=== PATIENT | male | born 1945 | race Caucasian/White ===

== ENCOUNTER → 2017-07-20 | Day surgery (SDC) | payer MEDICARE ==
[~2017-07-20] VITALS: Ht 175.3 cm; Wt 97.2 kg
[~2017-07-20] MED LIST: *RESP: ALBUTEROL 2.5 MG/3 ML NEB (PRN) PERIprocedural Use ONLY NEB ONE; ACETAMINOPHEN 1000 MG/100 ML VIAL IV SCH; ALBU6.7H INH; AMBI10TA PO; ATOR40TA PO; ATOR40TA16 PO; AZIT250T43 PO; BUPIVACAINE/EPINEPHRINE 0.5% 50 ML VIAL ONE; CEPH-460 PO; CHLORHEXIDINE GLUCONATE 2 % 1 PACK (2 CLOTHS) TOPICAL PRN; CITA10TA4 PO; COLA100C PO; DEXAMETHASONE SOD PHOS 4 MG/ML VIAL ONE; DICY10 PO; DILT300C3 PO; DILTCD300; DO NOT ADM ANY ANTICOAGULANT DRUGS PRN; FAMOTIDINE 20 MG/2 ML VIAL ONE; FENT25T T-DERMAL; FINA5TAB77; HYDR-3111 PO; INSULIN HUMAN REGULAR 1,000 UNITS/10 ML VIAL SQ PRN; KETOROLAC TROMETHAMINE 30 MG/ML (IVP) VIAL IV PUSH ONE; KETOROLAC TROMETHAMINE 30 MG/ML (IVP) VIAL ONE; LACTATED RINGER'S 1000 ML IV PRN; LANS30CA PO; LISI-366 PO; LORC10TA24; METOPROLOL TARTRATE 25 MG TAB PO PRN; MIDAZOLAM HCL 2 MG/2 ML VIAL ONE; MORPHINE SULFATE 4 MG/ML INJ IV PRN; NEOSTIGMINE 3 MG/3 ML SYR IV ONE; NORC5TAB PO; ONDANSETRON HCL 4 MG/2 ML VIAL IV PRN; ONDANSETRON HCL 4 MG/2 ML VIAL IV PUSH ONE; PHENYLEPH/NS 1000 MCG/10 ML SYR IV ONE; POVIDONE IODINE 5% (ANTISEPSIS KIT) 4 APPLICATIONS EACH NARE PRN; PRED50 PO; PROPOFOL 200 MG/20 ML AMP IV ONE; PROS5TAB PO; REGL10TA5 PO; RESP: ALBUTEROL 2.5 MG/IPRATROPIUM 0.5 MG NEB (SCH) ONE; SODIUM CHLORID 0.9% 500 ML IV PRN; SODIUM CHLORIDE 0.9% FLUSH 10 ML FLUSH IV FLUSH PRN; SODIUM CHLORIDE 0.9% FLUSH 10 ML FLUSH IV FLUSH SCH; SPIR25TA PO; SPIR25TA3 PO; TAMS0.4C4; TAMS0.4C4 PO; VENTAER INH; ZOLP10TA3 PO; [UNRECOGNIZED DRUG - CODE]; ceFAZolin 2 GM PREMIX 50 ML IV SCH; ePHEDrine/NS 25 MG/5 ML SYR IV ONE; oxyCODONE/ACETAMINOPHEN 5 MG/325 MG TAB PO PRN
[2017-07-20 10:11] LABS: AUTOMATED NEUTROPHIL # 9.6 TH/MM3 (1.8-7.7); BASOPHIL # 0.1 TH/MM3 (0-0.2); BASOPHIL % 0.5 % (0.0-2.0); EOSINOPHIL # 0.1 TH/MM3 (0-0.4); EOSINOPHIL % 0.9 % (0.0-4.0); HEMATOCRIT 45.2 % (39.0-51.0); HEMO FLAGS DIFF FINAL; LYMPH % 7.6 % (9.0-44.0); LYMPHOCYTE # 0.9 TH/MM3 (1.0-4.8); MEAN CORPUSCULAR HEMOGLOBIN 30.3 PG (27.0-34.0); MEAN CORPUSCULAR HGB CONC 32.6 % (32.0-36.0); PLATELET COUNT 309 TH/MM3 (150-450); RED BLOOD COUNT 4.86 MIL/MM3 (4.50-5.90); RED CELL DISTRIBUTION WIDTH 13.2 % (11.6-17.2); WHITE BLOOD COUNT 11.8 TH/MM3 (4.0-11.0)
[2017-07-20 10:33] LABS: TOTAL BILIRUBIN ADULT 0.7 MG/DL (0.2-1.0)
[2017-07-20 10:37] LABS: BICARBONATE 24.8 MEQ/L (21.0-32.0); INDIRECT BILIRUBIN 0.5 MG/DL (0.0-0.8); POTASSIUM 3.9 MEQ/L (3.5-5.1)
--- NOTE | 2017-07-20 10:39 | RADRPT ---
EXAM DATE/TIME: 07/20/2017 09:57 [facility] COMPARISON: No previous studies available for comparison. INDICATIONS : Pre-op surgery. MEDICAL HISTORY : Hypertension. SURGICAL HISTORY : Appendectomy. Right knee surgery. ENCOUNTER: Initial ACUITY: 2 months PAIN SCORE: 4/10 LOCATION: Right upper quadrant MEASUREMENTS: LIVER: 15.9 cm length COMMON DUCT: 5 mm RIGHT KIDNEY: 10.9 x 5.0 x 5.9 cm FINDINGS: LIVER: Mildly echogenic COMMON DUCT: No intraluminal mass or stone visualized. GALLBLADDER: Multiple gallstones with mild thickening of the gallbladder wall. PANCREAS: The visualized portions are within normal limits. RIGHT KIDNEY: No evidence of hydronephrosis, stone, or mass. CONCLUSION: Multiple gallstones with gallbladder wall thickening. Misael Cadena MD FACR on July 20, 2017 at 10:37 Board Certified Radiologist. This report was verified electronically.
--- NOTE | 2017-07-20 17:31 | PD.OP ---
cc: Pradeep Seo MD Operative Report Date of Surgery: Jul 20, 2017 Preoperative Diagnosis: Chronic cholecystitis and cholelithiasis Postoperative Diagnosis: Chronic cholecystitis and cholelithiasis Procedure: Laparoscopic cholecystectomy Anesthesia: General endotracheal Surgeon: Pradeep Seo Angular Developer(s): None Operation and Findings: Operative findings: The patient was found to have a relatively diseased- appearing gallbladder with minimal adhesions along Leal's pouch and to the duodenum. It was slightly thick-walled and and had many stones in it. The cystic duct was seen to be of normal caliber as did the common bile duct. The liver had significant fatty changes to it. Also of note was that there were numerous areas of peritoneal studding involving the upper abdomen near the diaphragm and on the falciform ligament as well as the right and lower anterior abdominal peritoneal surface. There was no evidence of gross tumor, nor was there any evidence of omental caking. Operative procedure: The patient is brought to the operating room and after satisfactory general endotracheal anesthesia obtained, the abdomen was prepped and draped in usual sterile fashion. The patient had a previous umbilical hernia repair and was decided to place initial trocar superiorly. Presently 8- 10 cm below the xiphoid, a 5 mm trocar was inserted through a small incision which and been anesthetized with 0.5 percent Marcaine with epinephrine. The abdomen was distended to 15 mmHg using carbon dioxide after which the camera was reinserted and visceral injury inspected for, with none being identified. Under direct visualization a 5 port and a 12 port were placed in the upper abdomen and another 5 port in the super umbilical region to avoid the mesh. The above-noted findings were seen and the decision was made to continue with the cholecystectomy. The gallbladder was grasped and retracted superiorly over the right lobe of the liver after which Leal's pouch was cleared of adhesions and from the duodenum. It was then retracted inferiorly and laterally placing tension on the hepatoduodenal ligament. The cystic artery cystic duct were both dissected free bluntly to obtain the critical view. Once the critical view been obtained the cystic duct and artery were both divided near their junction with the gallbladder using the harmonic scalpel. The gallbladder was then dissected free from the liver bed using the harmonic scalpel. It was grasped and placed within an Endo Catch bag and brought through the upper midline incision without problem. It was sent for permanent pathology. 2 separate areas of the peritoneal studding were biopsied. There is no definitive diagnosis on frozen section. The remaining specimens were sent for permanent pathology. The liver bed was inspected and irrigated copiously with saline. It was seen to be hemostatic with no areas of bleeding. The cystic duct cystic artery stumps were both inspected and found to be intact with no leakage of bile or blood. The carbon dioxide was vented as completely as possible the atmosphere. The ports were removed and the 12 mm fascial defect closed with interrupted 0 Vicryl sutures and skin closed with interrupted 4-0 PDS subcuticular stitches. Steri-Strips were applied and the patient was then taken from the operating room , in satisfactory condition, having tolerated procedure without problem. Estimated blood loss was less than 5 mL's. The instrument, sponge, needle counts were reported as being correct 2 at the end of the procedure. Pradeep Seo MD Jul 20, 2017 17:31
[2017-07-20 18:31] VITALS: BP 122/59; PULSE 101; RESP 20; TEMP 98.4; O2SAT 93
== END | disposition home or self-care (01) ==
LOC: HSDC 09:08
PROVIDERS: ATTEND Surgery
DX: K80.10 Calculus of gallbladder with chronic cholecystitis without obstruction (principal); C48.1 Malignant neoplasm of specified parts of peritoneum; C49.4 Malignant neoplasm of connective and soft tissue of abdomen; I10 Essential (primary) hypertension; E78.5 Hyperlipidemia, unspecified; E83.52 Hypercalcemia; E11.9 Type 2 diabetes mellitus without complications; K21.9 Gastro-esophageal reflux disease without esophagitis; F90.0 Attention-deficit hyperactivity disorder, predominantly inattentive type; F41.9 Anxiety disorder, unspecified; I70.0 Atherosclerosis of aorta; G51.0 Bell's palsy; N40.0 Benign prostatic hyperplasia without lower urinary tract symptoms; E78.1 Pure hyperglyceridemia; R05 Cough; G47.33 Obstructive sleep apnea (adult) (pediatric); Z87.891 Personal history of nicotine dependence; Z79.899 Other long term (current) drug therapy
CPT/HCPCS: 00790; 47562; 49321; 76705; 80048; 80076; 85025; 88305; 88313; 88331; 88341; 88342; 94640; 94664; J0131; J0690; J1100; J2250; J2370; J2405; J2710; J3010; J7613; J1885

== ENCOUNTER 2017-07-21 06:14 | Emergency (ER) | payer MEDICARE ==
[~2017-07-21 06:14] MED LIST changes: -*RESP: ALBUTEROL 2.5 MG/3 ML NEB (PRN) PERIprocedural Use ONLY NEB ONE; -ACETAMINOPHEN 1000 MG/100 ML VIAL IV SCH; -ALBU6.7H INH; -ATOR40TA PO; -AZIT250T43 PO; -BUPIVACAINE/EPINEPHRINE 0.5% 50 ML VIAL ONE; -CHLORHEXIDINE GLUCONATE 2 % 1 PACK (2 CLOTHS) TOPICAL PRN; -COLA100C PO; -DEXAMETHASONE SOD PHOS 4 MG/ML VIAL ONE; -DILTCD300; -DO NOT ADM ANY ANTICOAGULANT DRUGS PRN; -FAMOTIDINE 20 MG/2 ML VIAL ONE; -FENT25T T-DERMAL; -FINA5TAB77; -HYDR-3111 PO; -INSULIN HUMAN REGULAR 1,000 UNITS/10 ML VIAL SQ PRN; -KETOROLAC TROMETHAMINE 30 MG/ML (IVP) VIAL IV PUSH ONE; -KETOROLAC TROMETHAMINE 30 MG/ML (IVP) VIAL ONE; -LACTATED RINGER'S 1000 ML IV PRN; -LISI-366 PO; -LORC10TA24; -METOPROLOL TARTRATE 25 MG TAB PO PRN; -MIDAZOLAM HCL 2 MG/2 ML VIAL ONE; -MORPHINE SULFATE 4 MG/ML INJ IV PRN; -NEOSTIGMINE 3 MG/3 ML SYR IV ONE; -NORC5TAB PO; -ONDANSETRON HCL 4 MG/2 ML VIAL IV PRN; -ONDANSETRON HCL 4 MG/2 ML VIAL IV PUSH ONE; -PHENYLEPH/NS 1000 MCG/10 ML SYR IV ONE; -POVIDONE IODINE 5% (ANTISEPSIS KIT) 4 APPLICATIONS EACH NARE PRN; -PRED50 PO; -PROPOFOL 200 MG/20 ML AMP IV ONE; -REGL10TA5 PO; -RESP: ALBUTEROL 2.5 MG/IPRATROPIUM 0.5 MG NEB (SCH) ONE; -SODIUM CHLORID 0.9% 500 ML IV PRN; -SODIUM CHLORIDE 0.9% FLUSH 10 ML FLUSH IV FLUSH PRN; -SODIUM CHLORIDE 0.9% FLUSH 10 ML FLUSH IV FLUSH SCH; -SPIR25TA PO; -TAMS0.4C4; -VENTAER INH; -ZOLP10TA3 PO; -[UNRECOGNIZED DRUG - CODE]; -ceFAZolin 2 GM PREMIX 50 ML IV SCH; -ePHEDrine/NS 25 MG/5 ML SYR IV ONE; -oxyCODONE/ACETAMINOPHEN 5 MG/325 MG TAB PO PRN
[2017-07-21 06:17] VITALS: BP 126/61; PULSE 105; RESP 18; TEMP 97.7; O2SAT 93
[2017-07-21 07:19] VITALS: BP 111/66; PULSE 90; RESP 18; O2SAT 93
[2017-07-21] MEDS ORDERED: SODIUM CHLOR 0.9% 1000 ML INJ 1,000 ML IV ONE (07:30)
--- NOTE | 2017-07-21 08:17 | PD ---
HPI Chief Complaint: Complaint Time Seen by Provider: 07:04 Travel History International Travel<30 days: No Contact w/Intl Traveler<30days: No Traveled to known affect area: No History of Present Illness HPI Is a 72-year-old man who presents to the emergency department complaining of difficulty urinating. He had his gallbladder taken but black yesterday. He's had trouble with difficulty urinating in the past. He states he feels like he has to urinate extensive nothing really comes out. He is a little bit of mild lower abdominal discomfort but no significant distention. History Past Medical History Narrative Medical Hypertension BPH Hyperlipidemia Social History Alcohol Use: Yes (OCCASIONALLY) Tobacco Use: No Allergies-Medications (Allergen,Severity, Reaction): Coded Allergies: No Known Allergies (Unverified , 07/21/17) Reported Meds & Prescriptions Reported Meds & Active Scripts Active Reported Bentyl (Dicyclomine HCl) 10 Mg Cap 20 Mg PO TID Keflex (Cephalexin) 500 Mg Cap 500 Mg PO Q8H Lansoprazole 30 Mg Capdr 30 Mg PO DAILY Ambien (Zolpidem Tartrate) 10 Mg Tab 10 Mg PO HS PRN Tamsulosin (Tamsulosin HCl) 0.4 Mg Cap 0.4 Mg PO HS Spironolactone-Hydrochlorothiazide 25-25 Mg Tab 1 Tab PO DAILY Proscar (Finasteride) 5 Mg Tab 5 Mg PO DAILY Do not crush. Diltiazem CD 24 HR 300 Mg Caper 300 Mg PO DAILY Citalopram (Citalopram Hydrobromide) 10 Mg Tab 10 Mg PO DAILY Atorvastatin (Atorvastatin Calcium) 40 Mg Tab 40 Mg PO HS Review of Systems Except as stated in HPI: all other systems reviewed are Neg Physical Exam Narrative GENERAL: Well-appearing 72-year-old man, no acute distress. SKIN: Focused skin assessment warm/dry. HEAD: Atraumatic. Normocephalic. EYES: Pupils equal and round. No scleral icterus. No injection or drainage. ENT: No nasal bleeding or discharge. Mucous membranes pink and moist. NECK: Trachea midline. No JVD. CARDIOVASCULAR: Regular rate and rhythm. No murmur appreciated. RESPIRATORY: No accessory muscle use. Clear to auscultation. Breath sounds equal bilaterally. GASTROINTESTINAL: Wall proximal incisions. No erythema redness. No significant abdominal tenderness. Minimal suprapubic tenderness. Data Data Last Documented VS Vital Signs Date Time Temp Pulse Resp B/P (MAP) Pulse Ox O2 Delivery O2 Flow Rate FiO2 07/21/17 07:19 90 18 111/66 (81) 93 Room Air 07/21/17 06:17 97.7 Orders Orders Iv Access Insert/Monitor (07/21/17 07:18) Sodium Chlor 0.9% 1000 Ml Inj (Ns 1000 M (07/21/17 07:30) MDM Medical Decision Making Medical Screen Exam Complete: Yes Emergency Medical Condition: Yes Differential Diagnosis Acute retention, UTI, infection, other Narrative Course Medical decision making This 72-year-old male with a history of BPH, urinary retention the past, presents with difficulty urinating. Bladder scan performed by the nurse shows only about 330 mls of urine in the bladder. We'll place an IV and give IV fluid bolus. He will likely get better or worse, we'll place De La Cruz catheter if needed. Hopefully the symptoms will resolve likely from anesthesia. In the emergency department, patient was able to void spontaneously. He'll be I expect the symptoms to improve as he gets further removed from the surgery. Recommend supportive treatment and outpatient follow-up. Diagnosis Primary Impression: Urinary retention Additional Instructions: Follow-up with Dr. Seo as scheduled. Return to the emergency department for any new or worsening symptoms. Med/Other Pt SpecificInfo: No Change to Meds Disposition: 01 DISCHARGE HOME Condition: Stable Blaze Singletary MD Jul 21, 2017 08:16
[2017-07-21 09:05] VITALS: BP 112/62
[2017-08-21] MEDS ORDERED: COLA100C PO (11:52)
[2017-08-21] MEDS ORDERED: HYDR-3111 PO (11:52)
[2017-08-21] MEDS ORDERED: NORC5TAB PO (11:52)
[2017-08-21] MEDS ORDERED: VENTAER INH (11:52)
[2017-08-21] MEDS ORDERED: REGL10TA5 PO (11:52)
[2017-08-21] MEDS ORDERED: FENT25T T-DERMAL (11:52)
== END 2017-07-21 09:04 | disposition home or self-care (01) ==
LOC: NEPC 06:14
DX: N40.1 Benign prostatic hyperplasia with lower urinary tract symptoms (principal); R33.8 Other retention of urine
CPT/HCPCS: 96360; 99284; J7030

== ENCOUNTER → 2017-08-21 | Day surgery (SDC) | payer MEDICARE ==
[~2017-08-21] VITALS: Ht 175.3 cm; Wt 95.2 kg
[~2017-08-21] MED LIST changes: +ACETAMINOPHEN 1000 MG/100 ML 100 ML IV SCH; +BUPIVACAINE HCL PF 0.25% 30 ML VIAL ONE; +BUPIVACAINE/EPINEPHRINE 0.5% 50 ML VIAL ONE; +CHLORHEXIDINE GLUCONATE 2 % 1 PACK (2 CLOTHS) TOPICAL PRN; +COLA100C PO; +DEXMEDETOMIDINE HCL 200 MCG/2 ML VIAL ONE; +FAMOTIDINE 20 MG/2 ML VIAL ONE; +FENT25T T-DERMAL; +HEPARIN SODIUM - IV 10,000 UNITS/10 ML VIAL ONE; +HYDR-3111 PO; +INSULIN HUMAN REGULAR 1,000 UNITS/10 ML VIAL SQ PRN; +KETAMINE HCL 500 MG/5 ML VIAL ONE; +LACTATED RINGER'S 1000 ML IV PRN; +METOCLOPRAMIDE HCL 10 MG/2 ML VIAL ONE; +METOPROLOL TARTRATE 25 MG TAB PO PRN; +MIDAZOLAM HCL 2 MG/2 ML VIAL ONE; +NORC5TAB PO; +POVIDONE IODINE 5% (ANTISEPSIS KIT) 4 APPLICATIONS EACH NARE PRN; +REGL10TA5 PO; +SODIUM BICARBONATE 8.4% INJ 0 ML ONE; +SODIUM CHLORID 0.9% 500 ML IV PRN; +SODIUM CHLORIDE 0.9% 20 ML VIAL ONE; +VENTAER INH; +ceFAZolin 2 GM PREMIX 50 ML IV SCH; +ePHEDrine/NS 25 MG/5 ML SYR IV ONE
--- NOTE | 2017-08-21 15:32 | RADRPT ---
EXAM DATE/TIME: 08/21/2017 15:18 [facility] COMPARISON: No previous studies available for comparison. INDICATIONS : Infusaport placement in the operating room. FLUORO TIME: 0.75 minutes IMAGE COUNT: 1 MEDICAL HISTORY : Hypertension. SURGICAL HISTORY : Appendectomy. Right knee surgery. ENCOUNTER: Initial ACUITY: 1 day PAIN SCORE: Non-responsive. LOCATION: Left chest FINDINGS: Afkrii-d-Bezj is in place via left subclavian approach with its tip in the superior vena cava. The l ungs are not entirely visualized. CONCLUSION: 1. Uncomplicated line placement. No evidence of pneumothorax. Elvis Verdugo MD on August 21, 2017 at 15:30 Board Certified Radiologist. This report was verified electronically.
[2017-08-21 16:30] VITALS: BP 93/59; PULSE 69; RESP 16; TEMP 97.7; O2SAT 93
--- NOTE | 2017-09-18 12:23 | MP ---
cc: PRADEEP ROMEO DATE OF SURGERY 09/17/2017 PREOPERATIVE DIAGNOSIS Metastatic rhj-lirpu-fprm carcinoma. POSTOPERATIVE DIAGNOSIS Metastatic ipb-dnnrk-yuzm carcinoma. PROCEDURE Placement of left subclavian Ipeeal-H-Wxpr. SURGEON Pradeep Romeo MD PHOTOCOPY OPERATOR Oneil Stratton, MS3 ANESTHESIA Local with MAC. OPERATIVE PROCEDURE The patient was brought to the operating room and after satisfactory sedation by Anesthesia, the left chest was prepped and draped in the usual sterile fashion. 1% lidocaine with epinephrine was used to infiltrate the skin for local anesthesia after which a large bore needle was used to cannulate the left subclavian vein without problem. The guidewire was inserted into the superior vena cava, placement confirmed on fluoroscopy. A skin incision was then made medial to the guidewire and a subcutaneous pocket fashioned for the [id number]-Hebj. The port was placed within the pocket and the catheter cut to the appropriate length. A dilator and introducer were placed over the guidewire and the placement again was confirmed on fluoroscopy. The port was placed within the pocket and secured to the pectoralis fascia with a 3-0 Vicryl suture. The port was then aspirated easily and flushed with heparinized saline. A permanent x-ray was taken from the fluoroscope. After checking again for hemostasis which was seen to be satisfactory, the skin was closed with interrupted 4-0 PDS subcuticular stitches. Steri-Strips were applied. The patient was then taken from the operating room in satisfactory condition having tolerated the procedure without problem. MD BALJEET Sloan/SILVANA /11:53 AM /12:15 PM
== END | disposition home or self-care (01) ==
LOC: HSDC 10:51
PROVIDERS: ATTEND Surgery
DX: C34.91 Malignant neoplasm of unspecified part of right bronchus or lung (principal); I10 Essential (primary) hypertension
CPT/HCPCS: 00532; 36561; C1788; J0131; J0690; J1644; J2250; J2765; J7120